=== PATIENT | female | born 1970 | race Caucasian/White ===

== ENCOUNTER 2016-05-29 09:33 | Emergency (ER) | payer OTHER ==
[2016-05-29 09:37] VITALS: TEMP 97.5
[2016-05-29] MEDS ORDERED: ASPIRIN 81 MG CHEWABLE TAB PO ONE (09:44)
--- NOTE | 2016-05-29 09:46 | CPEKG ---
Heart Rate: 78 RR Interval: 769 P-R Interval: 152 QRSD Interval: 98 QT Interval: 368 QTC Interval: 420 P Felt: 63 QRS Felt: 64 T Wave Felt: 4 EKG Severity - NORMAL ECG - EKG Impression: SINUS RHYTHM Electronically Signed By: Enmanuel Dickerson 29-May-2016 12:49:18
--- NOTE | 2016-05-29 09:47 | EDPHY ---
H & P Stated Complaint: l ant cp since 629 Source: Patient, Family Exam Limitations: No limitations - Personal History LMP (Females 10-55): 8-14 Days Ago Current Tetanus/Diphtheria Vaccine: Yes - Medical/Surgical History Hx Asthma: No Hx Chronic Respiratory Disease: No Hx Diabetes: No Hx Cardiac Disease: No Hx Renal Disease: No Hx Cirrhosis: No Hx Alcoholism: No Hx HIV/AIDS: No Hx Splenectomy or Spleen Trauma: No Other PMH: htn - Social History Smoking Status: Never smoked HPI/ROS: CHIEF COMPLAINT: Chest Pain HISTORY OF PRESENT ILLNESS: Complaints of chest pain on the left side this started at 6:30 a.m. this morning. She was awake when this started. No exertion at the time of onset. [id number] pain. Radiates through to the back. Minimally worse with ambulation. No nausea, vomiting or diaphoresis. No shortness of breath. No cough. No recent illness. No abdominal or urinary complaints. No recent travel or surgery. No recent trauma. No previous venous thrombolic event. No use of exogenous estrogen or control pills. She is a nonsmoker. No previous incidence of coronary artery disease. No other associated complaints or modifying factors. FAMILY HISTORY CARDIAC: Father with coronary artery disease in late 40s PRIOR CARDIAC WORKUP: None REVIEW OF SYSTEMS: Ten systems reviewed and are negative unless otherwise noted in the HPI EXAMINATION: General Appearance: Alert, no distress Head: normocephalic, atraumatic Eyes: Pupils equal and round, no conjunctival pallor or injection ENT, Mouth: Mucous membranes moist Neck: Normal inspection, supple, non-tender Respiratory: Lungs are clear to auscultation. No wheezing, rhonchi or crackles. Cardiovascular: Regular rate and rhythm. No murmur. Pulses intact distally. Gastrointestinal: Abdomen is soft and nontender Back: non-tender, no bony abnormalities Neurological: A&O, nonfocal, normal gait Skin: Warm and dry, no rash Extremities: Nontender, no pedal edema Psychiatric: Mood and affect normal DIFFERENTIAL DIAGNOSES: Including but not limited to in no particular order: Acute Chest Pain, ACS, Stable Angina, Pneumonia, PE, duodenitis, gastritis, esophagitis, GERD MDM: 9:45 a.m. Left-sided chest pain that started at 6:30 a.m.. It has been constant. She is in no acute distress. She has had some anxiety with this as well. Laboratory studies, chest x-ray are pending. EKG is currently being performed at this time. [facility], 10:15 a.m. Laboratory studies are negative including a negative troponin and D-dimer. Chest x-ray as read by me is unremarkable. She is in no acute distress and has no chest pain at this time. 10:30 a.m. I discussed the case with [facility] PA, Haylee Tejada. I have requested stress test to be performed today. She is able to arrange this. The patient will have a stress test here and return back to the emergency department for disposition. The patient's spouse are agreeable with this plan. She remains stable, normal vital signs, and has no chest pain at this time. 11:[address] Dickerson received the results of the stress test. He has informed the patient of the negative findings. He has discharged the patient home. EKG: Interpreted by Dr. Dickerson SUPERVISION: Patient was evaluated in conjunction with the supervising physician. Please see their note for details. (Gabriel Johnson) Constitutional: Initial Vital Signs Temperature (C) 97.5 F 05/29/16 09:34 Heart Rate 85 05/29/16 09:34 Respiratory Rate 20 05/29/16 09:34 Blood Pressure 171/92 H 05/29/16 09:34 O2 Sat (%) 98 05/29/16 09:34 O2 Delivery Mode Room Air Allergies/Adverse Reactions: Sulfa (Sulfonamide Antibiotics) Allergy (Verified 05/29/16 09:34) Home Medications: Medication Instructions Recorded Lexapro 05/29/16 Losartan Potassium 05/29/16 Medical Decision Making - Diagnostics EKG Interpretation: 12-lead EKG interpreted by me; official reading is in trace master. My interpretation is sinus rhythm rate 78 with no acute ischemic changes. (Enmanuel Dickerson) Other Provider: PHYSICIAN DOCUMENTATION: The patient was evaluated and managed by the Physician [employer] and myself. I have reviewed the chart and agree with the findings and plan of care as documented. In addition, I examined the patient myself at 1120. History confirmed as nontraumatic chest pain just left of center, somewhat pleuritic. Physical findings as follows: Lungs clear and no cardiac murmur. Discussed with Haylee from Cardiology at 11:19 a.m., patient passed her treadmill stress test. Reassured patient that although we do not have a definitive diagnosis I think it is unlikely this represents acute coronary syndrome or other acute emergent medical problem. I am the secondary supervising physician. (Enmanuel Dickerson) - Data Points Laboratory Results: Laboratory Results 05/29/16 09:47 05/29/16 09:47 Medications Given: Discontinued Medications Aspirin (Aspirin) 324 mg PO EDNOW ONE Stop: 05/29/16 09:45 Last Admin: 05/29/16 09:50 Dose: 324 mg Departure - Departure Disposition: Home, Routine, Self-Care Clinical Impression: Chest pain Qualifiers: Chest pain type: unspecified Qualified Code(s): R07.9 - Chest pain, unspecified Condition: Good Instructions: Chest Pain (ED) Referrals: Laura Dorsey MD [Primary Care Provider] - As per Instructions
[2016-05-29 09:56] LABS: % IMMATURE GRANULYOCYTES 0.2 % (0.0-1.1); ABSOLUTE IMMATURE GRANULOCYTES 0.01 10^3/uL (0.00-0.10); ADD DIFF? NO; ADD MORPH? NO; ADD SCAN? NO; ATYPICAL LYMPHOCYTE FLAG 10 (0-99); FRAGMENT RBC FLAG 0 (0-99); HEMATOCRIT 44.4 % (38.0-47.0); HEMOGLOBIN 15.4 g/dL (12.6-16.3); LEFT SHIFT FLG 0 (0-99); LIPEMIA HEMOLYSIS FLAG 90 (0-99); MEAN CELL HEMOGLOBIN 31.5 pg (27.9-34.1); MEAN CELL HEMOGLOBIN CONCENTR. 34.7 g/dL (32.4-36.7); MEAN CELL VOLUME 90.8 fL (81.5-99.8); MEAN PLATELET VOLUME 11.2 fL (8.7-11.7); PLATELET CLUMPS FLAG 0 (0-99); PLATELET COUNT 239 10^3/uL (150-400); RED BLOOD CELL COUNT 4.89 10^6/uL (4.18-5.33); RED CELL DISTRIBUTION WIDTH 12.1 % (11.5-15.2)
[2016-05-29 10:07] LABS: APTT 25.8 SEC (23.0-38.0); INR 0.87 (0.83-1.16); PROTIME(PATIENT) 11.7 SEC (12.0-15.0)
[2016-05-29 10:13] LABS: ANION GAP 10 mEq/L (8-16); CALCIUM 10.1 mg/dL (8.5-10.4); CARBON DIOXIDE 27 mEq/l (22-31); CHLORIDE 104 mEq/L (97-110); CREATININE 0.6 mg/dL (0.6-1.0); GLOMERULAR FILTRATION RATE > 60; GLUCOSE 103 mg/dL (70-100); POTASSIUM 3.7 mEq/L (3.5-5.2); SODIUM 141 mEq/L (134-144)
[2016-05-29 10:25] LABS: TROPONIN I < 0.012 ng/mL (0-0.034)
[2016-05-29 11:29] VITALS: BP 126/90; PULSE 88; RESP 16; O2SAT 96
--- NOTE | 2016-05-29 12:10 | PDCONSULT ---
Director On Air Note: TM stress test Indication: cp Description of procedure: After informed consent was obtained, pt was established to ECG, BP, HR, and oximetry monitoring. At b/l, pt was in SR, bp 124/76, HR 72, and oximetry 96% RA. She noted mild respirophasic cp at rest. Pt exercised for a total of 9 minutes on the Gianluca protocol stress test. There were no significant ECG changes with exercise. Pt achieved HR of 169 which is 97 % of her MPHR based on age. No worsening of b/l cp. Peak BP 192/80 and oximetry 90%. No arrhythmias throughout testing. Impression: Normal exercise tolerance. Normal BP, HR response to exercise. O2 sat does drop with exertion though still wnl at 90% at peak exercise. Conclusion: likely noncardiac cp.
== END 2016-05-29 11:29 | disposition home or self-care (01) ==
DX: R07.9 Chest pain, unspecified (principal); I10 Essential (primary) hypertension